=== PATIENT | female | born 1970 | race Caucasian/White ===

== ENCOUNTER 2016-07-15 05:16 | Emergency (ER) | payer OTHER ==
[~2016-07-15] VITALS: Ht 160 cm; Wt 97.9 kg
[~2016-07-15 05:16] MED LIST: CLARITIN10 MG; FLEXERIL10 MG PO; HORMONE PATCH; INDOCIN25 MG PO; KEFLEX500 MG PO; LEVOXYL25 MCG PO; NAPROSYN500 MG PO; NO HOME MEDS; PREDNISONE10 MG PO; ULTRAM50 MG PO; ZYRTEC10 M3
[2016-07-15 05:22] VITALS: BP 140/51
== END 2016-07-15 06:18 | disposition left against medical advice (07) ==
LOC: EME 05:16
DX: M79.604 Pain in right leg (principal); M79.605 Pain in left leg; Z53.21 Procedure and treatment not carried out due to patient leaving prior to being seen by health care provider

== ENCOUNTER 2017-12-26 13:57 | Emergency (ER) | payer BC ==
[~2017-12-26] VITALS: Ht 162.6 cm; Wt 94.9 kg
[2017-12-26 14:27] LABS: HEMATOCRIT 40.6 % (36.0-46.0); HEMOGLOBIN 13.7 G/DL (11.9-15.5); MCH 32.5 PG (29.0-34.0); MCHC 33.7 G/DL (30.0-36.0); MCV 96.4 FL (83-99); PLATELET COUNT 329 K/uL (156-360); RBC DIS.WIDTH-CV 12.1 % (11.8-14.6); RBC DIS.WIDTH-SD 42.3 % (39-53); RED BLOOD COUNT 4.21 M/uL (3.80-5.20); WHITE BLOOD COUNT 13.1 K/uL (4.1-10.2)
[2017-12-26 14:40] LABS: CHLORIDE 105 mEq/L (99-109); SODIUM 142 mEq/L (136-147)
[2017-12-26 14:42] LABS: GLUCOSE 88 mg/dL (70-99)
[2017-12-26 14:46] LABS: CREATININE 0.8 mg/dL (0.6-1.3); GFR ESTIMATE (CALCULATED) > 59 mL/min/
[2017-12-26 14:47] LABS: UREA NITROGEN (BUN) 10 mg/dL (9-23)
[2017-12-26 14:48] LABS: TROP-I INTERPRETATION NEGATIVE; TROPONIN-I < 0.01 ng/mL (0.0-0.30)
[2017-12-26 17:30] LABS: TROP-I INTERPRETATION NEGATIVE; TROPONIN-I < 0.01 ng/mL (0.0-0.30)
[2017-12-26 18:12] VITALS: BP 134/58
== END 2017-12-26 18:31 | disposition home or self-care (01) ==
LOC: EME 13:57
PROVIDERS: Physician Assistant
DX: R07.89 Other chest pain (principal); R94.31 Abnormal electrocardiogram [ECG] [EKG]; Z98.51 Tubal ligation status; Z87.442 Personal history of urinary calculi; Z85.41 Personal history of malignant neoplasm of cervix uteri; Z98.890 Other specified postprocedural states; Z90.49 Acquired absence of other specified parts of digestive tract; Z90.710 Acquired absence of both cervix and uterus; Z88.2 Allergy status to sulfonamides; Z88.5 Allergy status to narcotic agent
CPT/HCPCS: 71046; 80048; 84484; 85027; 93005; 99281; 99285